=== PATIENT | male | born 1990 | race Caucasian/White ===

== ENCOUNTER 2018-03-12 16:35 | Emergency (ER) | payer SELFPAY ==
[2018-03-12 16:36] VITALS: BP 139/74; PULSE 90; RESP 16; TEMP 36.4; O2SAT 99; BMI 25.0
[2018-03-12] MEDS: 0.9% Normal Saline 1,000 ML 150 ML IV (17:07)
[2018-03-12 17:13] LABS: Absolute Lymphocyte Count 1.98 X10^3/ul (0.83-4.51); Absolute Neutrophil Count 3.1 X10^3/uL (2.0-7.7); Basophil# 0.02 X10^3/uL; Basophil% 0.3 % (0-1); Eosinophil# 0.37 X10^3/uL; Eosinophils% 6.2 % (0-5); Hematocrit 40.2 % (40-54); Hemoglobin 13.9 g/dl (13.0-16.5); Lymphocyte # 1.98 X10^3/ul (4.0); Lymphocyte % 33.3 % (19-41); Mean Corp Hgb Conc 34.6 g/gl (32-36); Mean Corpuscular Hgb 29.7 pg (27.0-32.0); Mean Corpuscular Volume 85.9 fL (80-94); Mean Platelet Vol. 10.3 fl (6.2-12.0); Monocyte# 0.45 X10^3/uL; Monocyte% 7.6 % (0-10); Neutrophil # 3.11 X10^3/uL (2.7-7.7); Neutrophil % 52.3 % (47-70); Platelet Count 185 K/mm3 (150-450); RBC Distribution Width CV 12.2 % (11.6-14.6); RBC Distribution Width SD 37.7 fl (35.1-43.9); Red Blood Count 4.68 M/mm3 (4.6-6.2)
[2018-03-12 17:15] LABS: POSITIVE COUNT NO; POSITIVE DIFFERENTIAL NO; POSITIVE MORPHOLOGY NO
[2018-03-12] MEDS: Ondansetron 4 MG/2 ML Vial IV (17:22)
[2018-03-12] MEDS: Morphine 4 MG/ML Syringe IV (17:22)
[2018-03-12 17:25] LABS: Anion Gap 10 (5-15); BUN 14 mg/dL (7-18); BUN/Creat Ratio 13.9 RATIO (10-20); Calcium,Total 8.4 mg/dL (8.5-10.1); Chloride 103 mmol/L (98-107); Creatinine, Serum 1.01 mg/dL (0.70-1.30); EST Glomerular Filtration Rate 95 mL/min (>60); Est Glom Filt Rate - Afr Amer 114 mL/min (>60); Estimated Creatinine Clearance 103.62 ml/min; Glucose 125 mg/dL (74-106); Potassium 3.5 mmol/L (3.5-5.1); Sodium Level 140 mmol/L (136-145)
--- NOTE | 2018-03-12 18:54 | ED.VISSUMM ---
- ER Visit Summary Date of Service: 03/12/18 Chief Complaint: Fall History of Present Illness: The patient is a 27 M who fell 6 feet from a ladder onto concrete. There was loss of consciousness. No one here with him witnessed the fall. Patient was reportedly ambulatory at the scene prior to EMS transport. He primarily complains of right shoulder pain. Patient denies vision change, nausea, or vomiting. Physical Examination: Vital signs unremarkable. Patient is immobilized on spine board with c-collar in place. Head neck examination was abrasions to the right parietal scalp without full-thickness laceration. He has no C-spine tenderness. There is no hemotympanum. Heart is regular rate and rhythm. Lung sounds are clear. Chest wall is nontender. Abdomen is soft and nontender. There are some linear abrasions noted to the right lateral lower abdominal wall. This area is not tender to palpation. Extremity examination reveals mild tenderness around the right shoulder. No obvious sign of dislocation. He has strong distal pulses and strong hand grasp. Test Results: CBC and chemistry studies are unremarkable. CT the head shows a questionable subcutaneous hematoma in the right parietal region. No underlying bony abnormality is noted. No hemorrhage intracranially. CT the C-spine shows straightening of the normal lordosis which may be secondary to the c-collar. There is no evidence of fracture or subluxation. CT the chest shows a comminuted fracture of the right clavicle. CT the abdomen pelvis is normal. Emergency Department Course and Treatment: Patient was given morphine and Zofran for pain. Right parietal scalp wound was cleansed. Arm is placed in a sling. He will be written for [facility] for pain at home. He will be referred to Dr. Spencer for follow-up. Treatment Plan: [] Disposition: Discharge Impression: 1. Fall 2. Closed head injury 3. Right clavicle fracture This note was generated with [employer] dictation software. It may contain incorrect words, spelling, and punctuation that were not noted in review of the chart prior to signing ED Disposition - Plan for ED Patient: Chief Complaint: Trauma Referrals: Long Crain DO [Primary Care Provider] -
--- NOTE | 2018-03-12 18:57 | ED.DCSUM_ITS ---
- ER Visit Summary Date of Service: 03/12/18 Chief Complaint: Fall History of Present Illness: The patient is a 27 M who fell 6 feet from a ladder onto concrete. There was loss of consciousness. No one here with him witnessed the fall. Patient was reportedly ambulatory at the scene prior to EMS transport. He primarily complains of right shoulder pain. Patient denies vision change, nausea, or vomiting. Physical Examination: Vital signs unremarkable. Patient is immobilized on spine board with c-collar in place. Head neck examination was abrasions to the right parietal scalp without full- thickness laceration. He has no C-spine tenderness. There is no hemotympanum. Heart is regular rate and rhythm. Lung sounds are clear. Chest wall is nontender. Abdomen is soft and nontender. There are some linear abrasions noted to the right lateral lower abdominal wall. This area is not tender to palpation. Extremity examination reveals mild tenderness around the right shoulder. No obvious sign of dislocation. He has strong distal pulses and strong hand grasp. Test Results: CBC and chemistry studies are unremarkable. CT the head shows a questionable subcutaneous hematoma in the right parietal region. No underlying bony abnormality is noted. No hemorrhage intracranially. CT the C-spine shows straightening of the normal lordosis which may be secondary to the c-collar. There is no evidence of fracture or subluxation. CT the chest shows a comminuted fracture of the right clavicle. CT the abdomen pelvis is normal. Emergency Department Course and Treatment: Patient was given morphine and Zofran for pain. Right parietal scalp wound was cleansed. Arm is placed in a sling. He will be written for [place] for pain at home. He will be referred to Dr. Spencer for follow-up. Treatment Plan: [] Disposition: Discharge Impression: 1. Fall 2. Closed head injury 3. Right clavicle fracture This note was generated with [employer] dictation software. It may contain incorrect words, spelling, and punctuation that were not noted in review of the chart prior to signing ED Disposition - Plan for ED Patient: Chief Complaint: Trauma Referrals: Long Crain DO [Primary Care Provider] -
--- NOTE | 2018-03-12 18:57 | ED.DEP ---
ED Disposition - Plan for ED Patient: Disposition: Home or Assisted Living Chief Complaint: Trauma Instructions: ED Concussion, ED Fx Clavicle Prescriptions: Hydrocodone/Acetaminophen [[place] 5-325 Tablet] 1 - 2 each PO 4X/DAY PRN PRN 5 Days #20 tablet PRN Reason: Pain Referrals: Long Crain DO [Primary Care Provider] - Edison Spencer DO [STAFF PHYSICIAN] - 1 Week
[2018-03-12 19:20] VITALS: PULSE 68; RESP 16; O2SAT 99
== END 2018-03-12 19:22 | disposition home or self-care (01) ==
PROVIDERS: Emergency Provider Emergency Medicine; Family Provider Family Medicine; PCP Family Medicine
DX: S42.001A Fracture of unspecified part of right clavicle, initial encounter for closed fracture (principal); S00.01XA Abrasion of scalp, initial encounter; S30.811A Abrasion of abdominal wall, initial encounter; W11.XXXA Fall on and from ladder, initial encounter; Y93.9 Activity, unspecified; Y92.9 Unspecified place or not applicable; Z72.0 Tobacco use
CPT/HCPCS: 70450; 71260; 72125; 74177; 80048; 85025; 96361; 96374; 96375; 99285; J7030; Q9967; A4216; J2405

== ENCOUNTER 2018-11-30 10:01 | Emergency (ER) | payer OTHER, SELFPAY ==
[2018-11-30 10:09] VITALS: BP 122/73; PULSE 82; RESP 16; TEMP 36.9; O2SAT 96; BMI 25.0
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
== END 2018-11-30 11:21 | disposition home or self-care (01) ==
LOC: ED 10:59
PROVIDERS: Emergency Provider Emergency Medicine; Family Provider Family Medicine; PCP Family Medicine
DX: S16.1XXA Strain of muscle, fascia and tendon at neck level, initial encounter (principal); S06.0X0A Concussion without loss of consciousness, initial encounter; V80.42XA Occupant of animal-drawn vehicle injured in collision with car, pick-up truck, van, heavy transport vehicle or bus, initial encounter; Y93.9 Activity, unspecified; Y92.9 Unspecified place or not applicable; Z72.0 Tobacco use
CPT/HCPCS: 71046; 72040; 72072; 99284